=== PATIENT | female | born 1945 | race Caucasian/White ===

== ENCOUNTER 2016-07-27 07:49 | Day surgery (SDC) | payer MEDICARE ==
[~2016-07-27] VITALS: Ht 170.2 cm; Wt 65.4 kg
[~2016-07-27 07:49] MED LIST: DICL50 PO; ENAL2.5 PO; HYDR12.56 PO; SIMV5TAB3 OR; SYNT25TA; TOPR25TA2 PO; TYLE3 PO
[2016-07-27] MEDS ORDERED: NS 1000P @30 MLS/HR (KVO) IV SCH (08:15)
[2016-07-27] MEDS ORDERED: BIOT1CAP2 PO (08:40)
[2016-07-27] MEDS ORDERED: METO50TA PO (08:40)
[2016-07-27] MEDS ORDERED: LEVO88TA2 PO (08:40)
[2016-07-27] MEDS ORDERED: LISI-515 PO (08:40)
[2016-07-27] MEDS ORDERED: ZETI10TA5 PO (08:40)
[2016-07-27] MEDS ORDERED: ISOS30TA3 PO (08:40)
[2016-07-27] MEDS ORDERED: AMLO2.5T PO (08:40)
[2016-07-27] MEDS ORDERED: CHOL1CAP8 PO (08:40)
[2016-07-27 08:41] VITALS: BP 153/92; PULSE 85; RESP 18; TEMP 98.5; O2SAT 99
[2016-07-27] MEDS ORDERED: HEPARIN-NS/PF INJ 500 ML ONE (11:06)
[2016-07-27] MEDS ORDERED: HEPARIN SODIUM - IV 10,000 UNITS/10 ML VIAL ONE (11:07)
[2016-07-27] MEDS ORDERED: MIDAZOLAM HCL 2 MG/2 ML VIAL ONE (11:07)
[2016-07-27] MEDS ORDERED: IOHEXOL 350 MG/ML 50 ML BTL (for Cath Lab) OTHER ONE (11:27)
[2016-07-27] MEDS ORDERED: diphenhydrAMINE HCL 50 MG/ML VIAL ONE (11:35)
[2016-07-27] MEDS ORDERED: ONDANSETRON HCL 4 MG/2 ML VIAL IVP PRN (11:45)
[2016-07-27] MEDS ORDERED: MISC INFORMATION XX ONE (11:45)
[2016-07-27] MEDS ORDERED: oxyCODONE/ACETAMINOPHEN 5 MG/325 MG TAB PO PRN ×2 (11:45)
[2016-07-27] MEDS ORDERED: BACITRACIN OINT 0.9 GM PKT TOP ONE (11:45)
--- NOTE | 2016-07-27 13:37 | MA ---
cc: ALANNA SANCHEZ DATE: 07/27/2016 PROCEDURE PERFORMED: 1. Fluoroscopy with interpretation. 2. Left heart catheterization. 3. Left ventriculography. 4. Coronary angiography. METHOD: Risks, benefits, and alternatives were discussed with the patient. The patient understood and consented to the procedure. The patient was brought into the catheterization lab and placed on the catheterization table. Right wrist was prepped and draped in a sterile fashion. Right wrist anesthetized with 2% lidocaine. Right radial artery was cannulated and a 6-Cuban 7-cm sheath was placed without difficulty. LEFT HEART CATHETERIZATION: A 6-Cuban JR-5 catheter was advanced across the aortic valve without difficulty. Intraoperative hemodynamics measured at 117/90 mmHg. Left ventricular end-diastolic pressure 9 mmHg. LEFT VENTRICULOGRAPHY: Left ventriculography was performed in the right anterior oblique view using a 6-Cuban JR-5 catheter. The left ventricular ejection fraction was 65% without regional wall motion abnormalities. CORONARY ANGIOGRAPHY: 1. Left main coronary is angiographically normal. 2. Left anterior descending coronary and diagonal branches are both tortuous angiographically normal. 3. Left circumflex gives rise to an obtuse marginal branch angiographically normal. 4. The right coronary has 20% stenosis in the mid segments, a dominant vessel giving rise to the posterior descending branch. CONCLUSIONS: 1. Mild nonobstructive coronary disease. 2. Normal left ventricular systolic function. PLAN: The patient will be monitored closely for any post procedural complications. Her stress test was a false-positive. We will continue with aggressive risk factor modification. She can follow up in the outpatient setting with a primary care doctor. MD LAZARO Chi/MONIKA /11:42 AM /1:34 PM
== END 2016-07-27 17:40 | disposition home or self-care (01) ==
LOC: HCAT 07:49 → HDIC 07:50 → HCAT 17:40
PROVIDERS: ATTEND Internal Medicine
DX: I25.10 Atherosclerotic heart disease of native coronary artery without angina pectoris (principal); I10 Essential (primary) hypertension; E78.5 Hyperlipidemia, unspecified; Z87.891 Personal history of nicotine dependence
CPT/HCPCS: 86850; 86900; 86901; 93458; C1769; C1893; J1200; J1644; J2250; J3010; J7030; Q9967